=== PATIENT | female | born 1955 | race Caucasian/White ===

== ENCOUNTER 2019-04-16 01:36 | Emergency (ER) | payer OTHER ==
[~2019-04-16] VITALS: Ht 167.6 cm; Wt 102.1 kg
[~2019-04-16 01:36] MED LIST: AMOXICILLIN500 M2 PO; AUGMENTIN 500 M1 TAB PO; CIPRO250 MG PO; HYDROCODONE BIT1 T11 PO; LEVOFLOXACIN500 MG PO; LIDEX 0.05% CRE15 GM T; LISINOPRIL10 MG PO; PRILOSEC20 M1 PO; TRAMADOL HCL50 MG PO
[2019-04-16 02:16] LABS: BILIRUBIN NEGATIVE (NEGATIVE); BLOOD 3+ (NEGATIVE); CLARITY CLOUDY (CLEAR); COLOR RED (YELLOW); GLUCOSE NEGATIVE (NEGATIVE); KETONE NEGATIVE (NEGATIVE); LEUKO ESTERASE 3+ (NEGATIVE); NITRITE NEGATIVE (NEGATIVE); SPECIFIC GRAVITY 1.015 (1.005-1.030); UROBILINOGEN 0.2 E.U./dl (0.2-1.0)
[2019-04-16 02:22] LABS: RBC TNTC rbc/hpf (0-2)
[2019-04-16] MEDS ORDERED: KEFLEX500 M1 PO (02:26)
[2019-04-16] MEDS ORDERED: PYRIDIUM200 M1 PO (02:26)
== END 2019-04-16 02:50 | disposition home or self-care (01) ==
LOC: ED 01:36
PROVIDERS: Emergency Medicine Emergency Medical Services
DX: N39.0 Urinary tract infection, site not specified (principal); R30.0 Dysuria; I10 Essential (primary) hypertension; Z88.8 Allergy status to other drugs, medicaments and biological substances; Z79.899 Other long term (current) drug therapy

== ENCOUNTER 2019-12-29 12:49 | Emergency (ER) | payer OTHER ==
[~2019-12-29] VITALS: Ht 162.6 cm; Wt 104.3 kg
[~2019-12-29 12:49] MED LIST changes: +KEFLEX500 M1 PO; +PYRIDIUM200 M1 PO
[2019-12-29] MEDS ORDERED: VIBRAMYCIN100 MG PO (13:17)
== END 2019-12-29 13:44 | disposition home or self-care (01) ==
LOC: ED 12:49
PROVIDERS: Emergency Medicine
DX: S70.361A Insect bite (nonvenomous), right thigh, initial encounter (principal); Z88.8 Allergy status to other drugs, medicaments and biological substances; Z79.899 Other long term (current) drug therapy; W57.XXXA Bitten or stung by nonvenomous insect and other nonvenomous arthropods, initial encounter; Y93.89 Activity, other specified; Y92.89 Other specified places as the place of occurrence of the external cause; Y99.8 Other external cause status

== ENCOUNTER 2020-11-11 08:48 | Emergency (ER) | payer OTHER ==
[~2020-11-11 08:48] MED LIST changes: +VIBRAMYCIN100 MG PO
[2020-11-11] MEDS ORDERED: VALTREX1000 MG PO (09:21)
== END 2020-11-11 09:28 | disposition home or self-care (01) ==
LOC: ED 08:48
DX: B02.9 Zoster without complications (principal); Z88.8 Allergy status to other drugs, medicaments and biological substances; Z79.899 Other long term (current) drug therapy

== ENCOUNTER 2022-08-05 11:56 | Emergency (ER) | payer OTHER ==
[~2022-08-05 11:56] MED LIST changes: +VALTREX1000 MG PO
== END 2022-08-05 15:08 | disposition left against medical advice (07) ==
LOC: ED 11:56
DX: Z04.3 Encounter for examination and observation following other accident (principal); Z53.21 Procedure and treatment not carried out due to patient leaving prior to being seen by health care provider

== ENCOUNTER 2022-08-10 14:16 | Emergency (ER) | payer OTHER ==
[~2022-08-10] VITALS: Ht 167.6 cm; Wt 102.1 kg
[2022-08-10] MEDS ORDERED: CYMBALTA60 MG PO (14:33)
[2022-08-10] MEDS ORDERED: AMLODIPINE BESY10 MG PO (14:33)
[2022-08-10] MEDS ORDERED: ESOMEPRAZOLE MA40 M1 PO (14:33)
[2022-08-10] MEDS ORDERED: METHOCARBAMOL750 M1 PO (14:34)
== END 2022-08-10 16:35 | disposition home or self-care (01) ==
LOC: ED 14:16
DX: S80.02XA Contusion of left knee, initial encounter (principal); I10 Essential (primary) hypertension; Z88.8 Allergy status to other drugs, medicaments and biological substances; Z98.890 Other specified postprocedural states; W19.XXXA Unspecified fall, initial encounter; Y93.89 Activity, other specified; Y92.89 Other specified places as the place of occurrence of the external cause; Y99.8 Other external cause status

== ENCOUNTER 2024-06-17 10:03 | Emergency (ER) | payer OTHER ==
[~2024-06-17] VITALS: Ht 162.5 cm; Wt 105.2 kg
[~2024-06-17 10:03] MED LIST changes: +AMLODIPINE BESY10 MG PO; +CYMBALTA60 MG PO; +ESOMEPRAZOLE MA40 M1 PO; +METHOCARBAMOL750 M1 PO
[2024-06-17] MEDS ORDERED: Acetaminophen/Oxycodone 5 MG/325 MG TABLET PO ONE (10:25)
[2024-06-17] MEDS ORDERED: VALTREX1000 MG PO (10:28)
[2024-06-17] MEDS ORDERED: TRAMADOL HCL50 MG PO (10:28)
[2024-06-17] MEDS ORDERED: PREDNISONE20 M1 PO (10:28)
== END 2024-06-17 10:48 | disposition home or self-care (01) ==
LOC: ED 10:03
DX: B02.9 Zoster without complications (principal); I10 Essential (primary) hypertension; Z79.899 Other long term (current) drug therapy; Z88.8 Allergy status to other drugs, medicaments and biological substances; Z91.040 Latex allergy status